=== PATIENT | male | born 1950 | race Caucasian/White ===

== ENCOUNTER 2018-01-15 13:58 | Day surgery (SDC) | payer MEDICARE ==
[2018-01-12 10:44] LABS: BASOPHILS # (AUTO) 0.1 X10'3 (0-0.2); BASOPHILS % (AUTO) 0.7 % (0-1); EOSINOPHILS # (AUTO) 0.2 X10'3 (0-0.9); EOSINOPHILS % (AUTO) 2.4 % (0-6); HEMATOCRIT 46.3 % (42.0-52.0); HEMOGLOBIN 15.7 g/dl (14.0-17.9); LYMPHOCYTES # (AUTO) 1.3 X10'3 (1.1-4.8); LYMPHOCYTES % (AUTO) 17.6 % (21-51); MEAN CORPUSCULAR HEMOGLOBIN 31.1 PG (27.0-31.0); MEAN CORPUSCULAR HGB CONC 33.9 % (33.0-36.5); MEAN CORPUSCULAR VOLUME 91.7 FL (78-98); MEAN PLATELET VOLUME 7.8 FL (7.4-10.4); MONOCYTES # (AUTO) 0.7 X10'3 (0-0.9); MONOCYTES % (AUTO) 9.5 % (2-12); NEUTROPHILS # (AUTO) 5.2 X10'3 (1.8-7.7); NEUTROPHILS % (AUTO) 69.8 % (42-75); PLATELET COUNT 205 X10'3 (140-440); RED BLOOD COUNT 5.05 X10'6 (4.70-6.10); RED CELL DISTRIBUTION WIDTH 12.9 % (11.5-14.5); WHITE BLOOD COUNT 7.5 X10'3 (4.5-11.0)
[2018-01-12 10:54] LABS: ALBUMIN 4.2 G/DL (3.4-5.0); ANION GAP 10 (8-16); BLOOD UREA NITROGEN 19 MG/DL (7-18); BUN/CREATININE RATIO 17.3 (5.4-32.0); CALCIUM 9.1 MG/DL (8.5-10.1); CHLORIDE 98 MMOL/L (99-107); GLUCOSE 111 MG/DL (70-104); POTASSIUM 4.2 MMOL/L (3.5-5.1); SODIUM 132 MMOL/L (135-145); TOTAL CARBON DIOXIDE 24.1 MMOL/L (24-32); eGFR 67 ML/MIN
[2018-01-12 11:15] LABS: INR 1.1 INR; PARTIAL THROMBOPLASTIN TIME 29 SECONDS (22-32); PROTHROMBIN TIME 10.7 SECONDS (9.0-12.0)
[~2018-01-15] VITALS: Ht 188 cm; Wt 107.2 kg
[2018-01-15] VITALS (8 sets, daily range): BP systolic 126–164; BP diastolic 77–98
[2018-01-15] MEDS ORDERED: LORazepam 0.5 MG tablet PO PRN (14:15)
[2018-01-15] MEDS ORDERED: LIDOcaine/PRILOcaine 5gm cream TP ONE (14:15)
[2018-01-15] MEDS ORDERED: diphenhydrAMINE 25mg capsule PO PRN (14:15)
[2018-01-15] MEDS ORDERED: normal saline 1000ml 1,000 ML IV SCH ×2 (14:15→18:20)
[2018-01-15] MEDS ORDERED: ASPI81TA52 PO (14:30)
[2018-01-15] MEDS ORDERED: MULT1TAB74 PO (14:30)
[2018-01-15] MEDS ORDERED: METO25TA6 PO (14:30)
[2018-01-15] MEDS ORDERED: LOSA100T15 PO (14:30)
[2018-01-15] MEDS ORDERED: LIDOcaine 1% 30ml preserv. free vial ONE (16:43)
[2018-01-15] MEDS ORDERED: iohexol 350MG/ML 100ml bottle IV ONE ×2 (16:43→17:20)
[2018-01-15] MEDS ORDERED: midazolam 2 mg/2 ml injection ONE ×2 (17:00→17:07)
[2018-01-15] MEDS ORDERED: fentaNYL/PF 50MCG/1 ML 2ML syringe ONE (17:00)
[2018-01-15] MEDS ORDERED: nitroGLYCERIN-Tridil 50MG/D5W 250 ML IV ONE (17:07)
[2018-01-15] MEDS ORDERED: verapamil 2.5 mg/ml inj IV ONE (17:07)
[2018-01-15] MEDS ORDERED: heparin 1,000unit/ml 10ml vial 10 ML ONE (17:08)
[2018-01-15] MEDS ORDERED: ondansetron/PF 4mg/2ml inj IV PRN (18:20)
[2018-01-15] MEDS ORDERED: OXAZEpam 15mg capsule PO PRN (18:20)
[2018-01-15] MEDS ORDERED: proCHLORperazine 10 MG/2 ml inj IV PRN (18:20)
[2018-01-15] MEDS ORDERED: HYDROcodone/acetaminophen 10/325mg tab PO PRN (18:20)
[2018-01-15] MEDS ORDERED: HYDROcodone/acetaminophen 5mg/325mg tablet PO PRN (18:20)
[2018-01-15] MEDS ORDERED: losartan 50mg tablet PO ONE (18:30)
[2018-01-15] MEDS ORDERED: metoprolol tartrate 25mg tablet PO ONE (18:30)
== END 2018-01-15 20:00 | disposition home or self-care (01) ==
LOC: SSTAY O 13:58
PROVIDERS: ATTEND Internal Medicine Interventional Cardiology
DX: I25.118 Atherosclerotic heart disease of native coronary artery with other forms of angina pectoris (principal); E66.3 Overweight; I10 Essential (primary) hypertension; G47.10 Hypersomnia, unspecified; M19.90 Unspecified osteoarthritis, unspecified site; Z86.74 Personal history of sudden cardiac arrest; Z87.891 Personal history of nicotine dependence; Z87.09 Personal history of other diseases of the respiratory system; Z86.19 Personal history of other infectious and parasitic diseases; Z98.52 Vasectomy status; Z68.30 Body mass index [BMI] 30.0-30.9, adult; Z79.82 Long term (current) use of aspirin; Z79.899 Other long term (current) drug therapy; Z98.890 Other specified postprocedural states
CPT/HCPCS: 36415; 80048; 85025; 85610; 85730; 92920; 93458; 99152; 99153; A6257; J1644; J2250; J3010; J3490; J7030; Q0163; Q9967; A4620; C1769